=== PATIENT | male | born 1990 | race Caucasian/White ===

== ENCOUNTER 2018-08-16 23:11 | Emergency (ER) | payer SELFPAY ==
[2018-08-16 23:58] VITALS: BP 126/76; PULSE 108; RESP 18; TEMP 98; O2SAT 96
--- NOTE | 2018-08-17 00:15 | C.PDOC ---
History Of Present Illness The patient is a 28-year-old male who was recently incarcerated and developed a diffuse itchy rash to his body over the past two weeks. Patient states his female partner and son have also developed the rash, and present to the ED with him for further evaluation. Patient denies throat swelling sensation, shortness of breath. Time Seen by Provider: 08/16/18 23:59 Chief Complaint (Nursing): Abnormal Skin Integrity History Per: Patient History/Exam Limitations: no limitations Onset/Duration Of Symptoms: Other (two weeks ) Current Symptoms Are (Timing): Still Present Quality Of Symptoms: Itching Additional History Per: Patient Past Medical History Reviewed: Historical Data, Nursing Documentation, Vital Signs Vital Signs: Last Vital Signs Temp 98.0 F 08/16/18 23:56 Pulse 108 H 08/16/18 23:56 Resp 18 08/16/18 23:56 BP 126/76 08/16/18 23:56 Pulse Ox 96 08/16/18 23:56 - Medical History PMH: No Chronic Diseases Denies: Chronic Kidney Disease Surgical History: No Surg Hx Family History: States: Unknown Family Hx - Social History Hx Alcohol Use: Yes Hx Substance Use: No - Immunization History Hx Tetanus Toxoid Vaccination: No Hx Influenza Vaccination: No Hx Pneumococcal Vaccination: No Review Of Systems Constitutional: Negative for: Fever, Chills, Weakness Cardiovascular: Negative for: Chest Pain, Palpitations Respiratory: Negative for: Cough, Shortness of Breath Gastrointestinal: Negative for: Nausea, Vomiting Skin: Positive for: Rash Neurological: Negative for: Weakness, Numbness, Dizziness Physical Exam - Physical Exam Appears: Non-toxic, No Acute Distress Skin: Rash (diffuse, papular rash to webbed spaces, torso and and bilateral lower extremities ) Head: Atraumatic, Normacephalic Eye(s): bilateral: Normal Inspection, PERRL, EOMI Nose: Normal Oral Mucosa: Moist Throat: Normal (no swelling or injection ), No Exudate, Other (airway patent ) Neck: Normal ROM, Supple Chest: Symmetrical, No Deformity Respiratory: No Accessory Muscle Use, Other (normal inspiratory effort ) Extremity: Normal ROM Extremity: Bilateral: Atraumatic Pulses: Left Radial: Normal, Right Radial: Normal Neurological/Psych: Oriented x3, Normal Cranial Nerves (grossly intact ) ED Course And Treatment O2 Sat by Pulse Oximetry: 96 (on RA) Pulse Ox Interpretation: Normal Medical Decision Making Medical Decision Making: Physical exam findings indicate scabies-like rash. Will give Rx for Permethrin and advised to f/u with PMD within 1-2 days for further evaluation. Disposition Counseled Patient/Family Regarding: Diagnosis, Need For Followup, Rx Given - Disposition Disposition: HOME/ ROUTINE Disposition Time: 00:13 Condition: STABLE Prescriptions: Permethrin 5% [Permethrin 5% Cream] 6 applic TOP ONCE #1 tube Instructions: Scabies (DC) Forms: [employer] (Setswana), General Discharge Instructions - Clinical Impression Clinical Impression: Scabies infestation - PA / PROFESSIONAL FEE CODER / Resident Statement MD/DO has reviewed & agrees with the documentation as recorded. - Scribe Statement The provider has reviewed the documentation as recorded by the Scribe (Faina Reddy) All medical record entries made by the Scribe were at my direction and personally dictated by me. I have reviewed the chart and agree that the record accurately reflects my personal performance of the history, physical exam, medical decision making, and the department course for this patient. I have also personally directed, reviewed, and agree with the discharge instructions and disposition.
== END 2018-08-17 00:30 | disposition home or self-care (01) ==
LOC: C.ER 23:11
DX: B86 Scabies (principal)